=== PATIENT | male | born 1955 | race Caucasian/White ===

== ENCOUNTER → 2019-09-28 | Outpatient (CLI) | payer OTHER, BC ==
[~2019-09-28] MED LIST: AMBEREN; CLORAZEPATE D3.75 M1 PO; K-DUR10 ME1; LEXAPRO 10 MG T10 MG; LOPRESSOR50 MG PO; NORPACE CR150 MG PO; PRADAXA150 MG; ROZEREM 8 MG TAB8 M1 PO; SUPER THERAVIT1 EACH PO; VITAMIN C500 M2 PO; VITAMINC500; XARELTO20 MG PO
[2019-09-28 08:48] LABS: HEMATOCRIT 42.3 % (42.0-52.0); HEMOGLOBIN 14.1 gm/dL (14.0-18.0); MCH 30.6 pg (26.0-34.0); MCHC 33.4 g/dL (28.0-37.0); MCV 91.4 fL (80.0-100.0); RBC 4.63 mil/uL (4.50-6.00); RDW 13.3 % (10.5-14.5); WBC 5.1 thou/uL (4.0-11.0)
[2019-09-28 08:57] LABS: INR 1.1; PROTIME 11.1 Seconds (9.3-11.4)
[2019-09-28 09:04] LABS: ALBUMIN 3.5 g/dL (3.4-5.0); CALCIUM 9.1 mg/dL (8.5-10.1); CREATININE 1.1 mg/dL (0.7-1.3); POTASSIUM 4.2 mmol/L (3.5-5.1); TOTAL BILIRUBIN 0.4 mg/dL (<0.1-1.0); TOTAL PROTEIN 7.4 g/dL (6.4-8.2)
== END ==
LOC: CAT 07:54
PROVIDERS: Internal Medicine Cardiovascular Disease
DX: K76.9 Liver disease, unspecified (principal); I48.91 Unspecified atrial fibrillation

== ENCOUNTER → 2019-09-29 | Outpatient (CLI) | payer OTHER, BC ==
[~2019-09-29] VITALS: Ht 185.4 cm; Wt 100.2 kg
[2019-09-29 07:35] VITALS: BP 114/64
== END | disposition home or self-care (01) ==
LOC: CATH
DX: I48.0 Paroxysmal atrial fibrillation (principal); I34.0 Nonrheumatic mitral (valve) insufficiency; E78.5 Hyperlipidemia, unspecified; Z98.890 Other specified postprocedural states; Z79.899 Other long term (current) drug therapy; Z79.01 Long term (current) use of anticoagulants; Z88.2 Allergy status to sulfonamides; Z82.49 Family history of ischemic heart disease and other diseases of the circulatory system

== ENCOUNTER 2019-10-02 06:39 | Observation (INO) | payer OTHER, BC ==
--- NOTE | 2019-09-29 08:54 | TEE ---
[place] [address] [address] [facility] [place] [address] TRANSESOPHAGEAL ECHOCARDIOGRAM Name: NORRIS YUAN Room #: PRE [facility]#: [id number] Admission: Attend Phys: Wilder Fierro, Discharge: Date of : 51 Report #: [id number] THIS REPORT FOR: //name// APPROVED REPORT Study performed: 09/29/2019 07:53:16 EXAM: Comprehensive 2D, Doppler, and color-flow Echocardiogram Patient Location: Out-Patient Room #: 9 Status: routine BSA: 2.24 HR: 54 bpm BP: 117/63 mmHg Rhythm: Bradycardia Other Information Study Quality: Excellent Indications Atrial Fibrillation Echo Enhancing Agent Indication: Rule out Shunt Agent(s) / Amount(s) Used: Agitated Saline 7 cc Procedure After obtaining informed consent, patient underwent transesophageal echo in the [employer] [employer]. Type of Sedation : Conscious Sedation Sedation was administered by Nurse. Sedation was achieved intravenously with: Versed (4 mg) Fentanyl (100 mcg) Transesophageal probe was inserted and advanced into esophagus without difficulty by Wilder Fierro MD. Echo enhancement indication: R/O Septal defect. Echo enhancement agent administered: Agitated Saline The ROBERT was performed without complications. Throughout the procedure, the blood pressure, pulse oximetry, cardiac rhythm, and rate were monitored. The patient tolerated the procedure without adverse effects. Recovery from conscious sedation was uneventful and vital signs were stable. [facility] [address] [place] [address] TRANSESOPHAGEAL ECHOCARDIOGRAM Name: NORRIS YUAN Room #: PRE [facility]#: [id number] Admission: Attend Phys: Wilder Fierro, Discharge: Date of : 51 Report #: [id number] Left Ventricle The left ventricle is normal size. There is normal LV segmental wall motion. There is normal left ventricular wall thickness. Left ventricular systolic function is normal. The left ventricular ejection fraction is within the normal range. LVEF is 55-60%. Right Ventricle The right ventricle is normal size. The right ventricular systolic function is normal. Atria The left atrium size is normal. No thrombus is visualized in the left atrium or appendage. Interatrial septum is intact without evidence of ASD or PFO. The right atrium size is normal. Aortic Valve The aortic valve is normal in structure. No aortic regurgitation is present. There is no aortic valvular stenosis. Mitral Valve The mitral valve is normal in structure. Mild mitral regurgitation. No evidence of mitral valve stenosis. Tricuspid Valve The tricuspid valve is normal in structure. There is no tricuspid valve regurgitation noted. Pulmonic Valve The pulmonary valve is normal in structure. There is no pulmonic valvular regurgitation. Great Vessels The aortic root is normal in size. The ascending aorta is normal in size. IVC is normal in size and collapses >50% with inspiration. Pericardium There is no pericardial effusion. <Conclusion> The left atrium size is normal. Left ventricular systolic function is normal. There is normal LV segmental wall motion. LVEF is 55-60%. Both atria are normal in size. No shunting by contrast bubble injection [facility] [address] [place] [address] TRANSESOPHAGEAL ECHOCARDIOGRAM Name: NORRIS YUAN Peter Room #: PRE [facility]#: [id number] Admission: Attend Phys: Wilder Fierro, Discharge: Date of : 51 Report #: [id number] No thrombus is visualized in the left atrium or appendage. The aortic valve is normal in structure. No aortic regurgitation or stenosis. The mitral valve is normal in structure. Mild mitral regurgitation. There is no pericardial effusion. <ELECTRONICALLY SIGNED> By: Wilder Fierro MD, [facility] 09/29/19 0853 2 Wilder Fierro MD, [facility] /INF
[2019-10-02] VITALS (18 sets, daily range): BP systolic 98–133; BP diastolic 52–60
[~2019-10-02] VITALS: Ht 185.4 cm; Wt 99.8 kg
[2019-10-02 07:32] LABS: ABSOLUTE NEUTROPHILS 2.7 thou/uL (1.4-8.2); BASOPHILS 0.9 % (0.0-2.0); EOSINOPHILS 3.2 % (0.0-3.0); HEMATOCRIT 42.4 % (42.0-52.0); HEMOGLOBIN 14.1 gm/dL (14.0-18.0); MCH 30.3 pg (26.0-34.0); MCHC 33.3 g/dL (28.0-37.0); MCV 90.9 fL (80.0-100.0); MONOCYTES 10.3 % (1.0-8.0); PLATELET COUNT 203 thou/uL (150-400); POLYS 54.6 % (36.0-66.0); RBC 4.66 mil/uL (4.50-6.00); RDW 13.2 % (10.5-14.5)
[2019-10-02 07:37] LABS: CALCIUM 9.1 mg/dL (8.5-10.1); CREATININE 1.1 mg/dL (0.7-1.3); POTASSIUM 3.7 mmol/L (3.5-5.1)
[2019-10-02 07:44] LABS: ALBUMIN 3.5 g/dL (3.4-5.0); TOTAL BILIRUBIN 0.7 mg/dL (<0.1-1.0); TOTAL PROTEIN 7.4 g/dL (6.4-8.2)
[2019-10-02 07:57] LABS: APTT 29.2 Seconds (24.5-32.8); INR 1.1; PROTIME 10.9 Seconds (9.3-11.4)
--- NOTE | 2019-10-02 17:23 | NUR ---
PT ADMITED FROM [employer] [facility]. ADMISSION HX AND ASSESSMENT COMPLETED. RIGHT GROIN INCISION C/D/I. NO HEMATOMA NOTED. POST OP INSTRUCTIONS GIVEN TO PT. PT VERBERLISED UNDERSTANDING. WILL CONTINUE TO MONITOR.
[2019-10-03 04:05] VITALS: BP 93/59
--- NOTE | 2019-10-03 04:41 | NUR ---
PT HAS VOIDED POST GARCIA REMOVAL, AND L WRIST AND R GROIN SITES REMAIN CDI, VSS, NO C/O PAIN, HOPES TO GO HOME TODAY.
[2019-10-03 09:02] VITALS: BP 106/58
[2019-10-03] MEDS ORDERED: XARELTO20 MG PO (12:34)
[2019-10-03 12:40] VITALS: BP 106/58
--- NOTE | 2019-10-03 13:08 | NUR ---
ASSESSMENT CHARTED. PT ALERT AND ORIENTED. VSS. RECEIVED PRN PAIN MED FOR [place] WITH PARTIAL RELIEF. SEEN BY DR. CHILDERS. ORDERS GIVEN TO DISCHARGE PT TO HOME. DISCHARGE INSTRUCTIONS GIVEN TO PT. PT VERBERLISED UNDDERSTANDING.
--- NOTE | 2019-10-05 15:05 | P ---
[facility] [place] [address] PROCEDURE REPORT Name: NORRIS YUAN Room #: 219-P [facility]#: [id number] Admission: 10/02/19 Attend Phys: Geremias Flores MD Discharge: 10/03/19 Date of : 51 Report #: [id number] THIS REPORT FOR: //name// CC: Dez Flores DATE OF SERVICE: 10/02/2019 PREOPERATIVE DIAGNOSES: 1. Atrial fibrillation. 2. Atrial flutter. POSTOPERATIVE DIAGNOSES: 1. Atrial fibrillation. 2. Atrial flutter. PROCEDURES PERFORMED: 1. Atrial fibrillation ablation, CPT code 25832. 2. Intracardiac echo, CPT code 12931. 3. 3D mapping, CPT code 01164. 4. Second pathway ablation for atrial flutter, CPT code 49108. HISTORY: The patient is a 64-year-old male structurally normal heart, who has had recurrent paroxysmal atrial fibrillation and has also had atrial flutter in the past. He has failed antiarrhythmic drugs in the form of disopyramide which he has been on for years. He is here for atrial fibrillation and atrial flutter ablation. ANESTHESIA: The patient underwent general anesthesia with no anesthesia related complications. DESCRIPTION OF PROCEDURE: The patient underwent informed consent. We discussed the details of the procedure including the risks, which include but not limited to bleeding, vascular damage, cardiac perforation, stroke and NM. He understood these risks and is willing to proceed. He was brought to the EP laboratory in a fasting and sedated state and prepped and draped in a sterile fashion. I injected lidocaine at the right groin and obtained access to the right femoral vein x 3, placing an 8, 9 and 7-[place] short sheath using the modified Seldinger technique. Of note, his groin region was quite tight, which made advancement of sheath somewhat challenging. Next, under fluoroscopy, I placed a decapolar catheter into the coronary sinus for left atrial pacing and recording, I placed the ICE catheter into the right atrium and created a detailed 3D geometry of the left atrium. The patient had a prior transesophageal echo showing no left atrial appendage thrombus and had a CT scan that shows that he has a left common ostium with the superior and [address] [address] PROCEDURE REPORT Name: NOR[facility]IS YUAN [id number] Ad[facility]: 10/02/19 Attend Phys: Geremias Flores MD Discharge: 10/03/19 Date of : 51 Report #: [id number] inferior branch noted. He also has a normal right superior and right inferior pulmonary veins. Next using intracardiac ultrasound, I created a detailed 3D geometry of the left atrium. It was evident that he had a left common ostium and I could see both superior and inferior branch. He also had evidence of the right superior and right inferior pulmonary veins. I also created 3D geometry of the cavotricuspid isthmus as we would be ablating this as well. Next, the patient was systemically heparinized and a transseptal was performed using an SL1 sheath and a [place] needle. This was straightforward on the first pass. I entered with the tip of the SL1 sheath into the left atrium and got my wire into the left superior pulmonary vein. I could not advance my SL1 sheath in the left atrium therefore exchanged for the cryo sheath and this also would not advance. Therefore, I went back up with the SL1 sheath and now it would easily enter the left atrium and using a Powerflex 6 mm x 4 cm balloon, I performed an atrial septum dilatation. After performing this, I was able to exchange for the cryo sheath and advanced this easily into the left atrium. At baseline, the patient was in sinus rhythm with sinus cycle length of 960 milliseconds, AR interval 170 milliseconds, QRS duration 95 milliseconds, QT interval 410 milliseconds. Next, I placed the Lasso catheter and created a 3D geometry of the left atrium. I then placed the cryoballoon into the left atrium. I performed multiple attempts to freeze the left superior pulmonary veins and the temperatures were all less than -30. I performed 2 additional freezes along the posterior roof and anterior roof, but my pressure waveforms were poor and injection with contrast also showed poor apposition of the vein. As such, the balloon was not going to isolate this vein. I therefore moved to the right-sided veins. I performed 2 freezes in the right superior pulmonary vein. The first freeze was of 4 minutes' duration and resulted in isolation of the vein within 80 seconds, second freeze of 2 minutes duration. I then turned my attention to the right inferior pulmonary vein and performed a 4-minute freeze, which resulted in isolation of 60 seconds. I performed an additional freeze of 2 minutes' duration. The 2 right-sided veins were clearly isolated. At this point, I removed the cryoballoon from the left atrium and placed the Lasso catheter and created a voltage map of the left common ostium. I then went into the left atrium with a [employer] ablation catheter and performed ablation along the posterior aspect of the pulmonary vein at [address] and also along the ridge between the left superior pulmonary vein and the left atrial appendage. I then reinterrogated the vein and there were still signals noted primarily along the anterior ridge. I therefore went back up with the ablation catheter and performed additional ablation along the ridge starting at the roof and down to the inferior aspect of this vein. I also performed additional ablation along the posterior aspect of the left common ostium as there were still some sharp signals at this site. Of note, esophageal temperatures were stable throughout the ablation. Next, I went back with the Lasso catheter, we had clearly isolated the common ostium. As such, we pulled everything to the right atrium and I proceeded with atrial flutter ablation. ATRIAL FLUTTER ABLATION: Pre-ablation, the patient had a transistus [facility] [address] [place] [address] PROCEDURE REPORT Name: NORRIS YUAN Room #: 219-P [facility].#: [id number] Admission: 10/02/19 Attend Phys: Geremias Flores MD Discharge: 10/03/19 Date of : 51 Report #: [id number] conduction time of 85 milliseconds. I performed ablation at [address] and performed a continuous drag lesion along the cavotricuspid isthmus. He did have a slight pouch. I initially tried obtaining block with just the ablation catheter, but then decided to ablate via the cryo sheath. After performing this, we performed additional measurements and there was evidence of bidirectional block with transisthmus conduction time of 120 milliseconds. Using intracardiac ultrasound, I verified there was no pericardial effusion and at this point, the procedure was concluded. The patient received systemic protamine and once ACT was within acceptable range, catheters and sheaths were pulled. Hemostasis was obtained and the patient awoke neurologically and hemodynamically intact. CONCLUSIONS: 1. Successful AFib ablation with isolation of the pulmonary veins. 2. Successful isolation of the left common ostium, requiring both cryoablation and radiofrequency ablation. 3. Successful atrial flutter ablation with evidence of bidirectional block. <ELECTRONICALLY SIGNED> By: Geremias Flores MD 10/05/19 1505 [id number] Geremias Flores MD /nt
== END 2019-10-03 13:44 | disposition home or self-care (01) ==
LOC: CATH → 2N 14:31
PROVIDERS: ADMIT Internal Medicine Cardiovascular Disease
DX: I48.92 Unspecified atrial flutter (principal); I48.0 Paroxysmal atrial fibrillation
CPT/HCPCS: 62110; 62900; 65020; 65040; 70005

== ENCOUNTER → 2019-12-31 | Outpatient (CLI) | payer OTHER, BC | LOC: SJCVC 12:59 | DX: R94.31 Abnormal electrocardiogram [ECG] [EKG] (principal); I48.0 Paroxysmal atrial fibrillation; I48.3 Typical atrial flutter ==

== ENCOUNTER → 2020-01-01 | Outpatient (CLI) | payer OTHER, BC ==
--- NOTE | ~2020-01-01 | P ---
[facility] [place] [place] [address] PROCEDURE REPORT Name: NORRIS YUAN Room #: PRE [facility]..#: [id number] Admission: Attend Phys: Geremias Flores MD Discharge: Date of : 51 Report #: [id number] THIS REPORT FOR: cc: Fredi HURTADO,Dez Rai II,Dez Flores,Geremias Wilder MD ~ CC: Dez Flores IMPLANTABLE LOOP RECORDER INSERTION PREOPERATIVE DIAGNOSIS: Palpitations, atrial fibrillation. POSTOPERATIVE DIAGNOSIS: Palpitations, atrial fibrillation. DESCRIPTION OF PROCEDURE: The patient underwent informed consent. He was prepped and draped in a standard fashion. I injected lidocaine at the incision site. Incision was made, device was injected under the skin, single layer of suture was performed and surgical glue and a dressing was placed. There were no procedure related complications. The implanted device was [employer] Reve[employer] model #LINQ11, serial #[id number]. CONCLUSIONS: Successful implantation of implantable loop recorder. By: [id number] Geremias Flores MD /nt
[2020-01-01 08:42] VITALS: BP 126/64
== END ==
LOC: CATH 08:18
DX: I48.0 Paroxysmal atrial fibrillation (principal); R00.2 Palpitations; Z79.899 Other long term (current) drug therapy; Z88.2 Allergy status to sulfonamides

== ENCOUNTER → 2020-02-09 | Outpatient (CLI) | payer OTHER, BC | LOC: SJCVC 14:24 | PROVIDERS: ATTEND Internal Medicine | DX: I48.0 Paroxysmal atrial fibrillation (principal); E78.5 Hyperlipidemia, unspecified; E78.00 Pure hypercholesterolemia, unspecified; Z79.899 Other long term (current) drug therapy ==

== ENCOUNTER → 2020-04-07 | Outpatient (CLI) | payer OTHER, BC | LOC: SJCVC 14:32 | PROVIDERS: ATTEND Internal Medicine Cardiovascular Disease | DX: I48.0 Paroxysmal atrial fibrillation (principal); I48.3 Typical atrial flutter; E78.00 Pure hypercholesterolemia, unspecified; Z79.899 Other long term (current) drug therapy ==

== ENCOUNTER → 2020-09-21 | Outpatient (CLI) | payer OTHER, BC | LOC: SJCVC 10:54 | PROVIDERS: ATTEND Internal Medicine | DX: R94.31 Abnormal electrocardiogram [ECG] [EKG] (principal); I48.0 Paroxysmal atrial fibrillation; E78.5 Hyperlipidemia, unspecified; E78.00 Pure hypercholesterolemia, unspecified; Z79.899 Other long term (current) drug therapy ==

== ENCOUNTER → 2020-10-12 | Outpatient (CLI) | payer OTHER, BC | LOC: SJCVC 14:33 | PROVIDERS: ATTEND Internal Medicine Cardiovascular Disease | DX: I48.0 Paroxysmal atrial fibrillation (principal); I48.3 Typical atrial flutter; G47.33 Obstructive sleep apnea (adult) (pediatric); E78.00 Pure hypercholesterolemia, unspecified; Z98.890 Other specified postprocedural states; Z88.8 Allergy status to other drugs, medicaments and biological substances; Z79.899 Other long term (current) drug therapy; Z82.49 Family history of ischemic heart disease and other diseases of the circulatory system ==